=== PATIENT | male | born 2000 | race Two or more races ===

== ENCOUNTER 2021-04-07 21:38 | Emergency (ER) | payer SELFPAY ==
[~2021-04-07] VITALS: Ht 172.7 cm; Wt 101.0 kg
--- NOTE | 2021-04-07 22:20 | PHYS DOC ---
General Adult EDM: Chief Complaint: COUGH HPI: HPI: Patient is a 20-year-old male who presents to the emergency department with a clear productive cough and shortness of breath with coughing. He reports that symptoms started today. He states that his boss is sick with similar symptoms but is unsure of if he has Covid. Patient has a low-grade fever in the emergency department at 100.1 degrees. Patient denies nausea, vomiting, loss of taste or smell. Patient has no medical problems. (GISELLE GARNER APRN) Review of Systems: Review of Systems: 14 body systems of the review of systems have been reviewed. See HPI for pertinent positive and negative responses, otherwise all other systems are negative, nonpertinent or noncontributory (GISELLE GARNER APRN) Heart Score: C/O Chest Pain: No Risk Factors: Risk Factors: DM, Current or recent (<one month) smoker, HTN, HLP, family history of CAD, obesity. Risk Scores: Score 0 - 3: 2.5% MACE over next 6 weeks - Discharge Home Score 4 - 6: 20.3% MACE over next 6 weeks - Admit for Clinical Observation Score 7 - 10: 72.7% MACE over next 6 weeks - Early Invasive Strategies (GISELLE GANRER APRN) Physical Exam: PE: Constitutional: Well developed, well nourished, no acute distress, non-toxic appearance. [] HENT: Normocephalic, atraumatic, bilateral external ears normal, oropharynx moist, no oral exudates, nose normal. [] Eyes: PERRL, EOMI, conjunctiva normal, no discharge. [] Neck: Normal range of motion, no tenderness, supple, no stridor. [] Cardiovascular:Heart rate tachycardic rhythm, no murmur [] Lungs & Thorax: Bilateral breath sounds clear to auscultation [] Abdomen: Bowel sounds normal, soft, no tenderness, no masses, no pulsatile masses. [] Skin: Warm, dry, no erythema, no rash. [] Back: Normal range of motion Extremities: No tenderness, no cyanosis, no clubbing, ROM intact, no edema. [] Neurologic: Alert and oriented X 3, normal motor function, normal sensory function, no focal deficits noted. [] Psychologic: Affect normal, judgement normal, mood normal. [] (GISELLE GARNER APRN) Current Patient Data: Labs: Laboratory Tests Test 04/07/21 22:15 Influenza Type A Antigen Negative Influenza Type B Antigen Negative Current Medications Medications (Trade) Dose Ordered Sig/Amarjit Route PRN Reason Start Time Stop Time Status Last Admin Dose Admin Acetaminophen (Tylenol) 1,000 mg 1X ONCE PO 04/07/21 23:00 04/07/21 23:01 04/07/21 22:51 Ibuprofen (Motrin) 600 mg 1X ONCE PO 04/07/21 23:00 04/07/21 23:01 04/07/21 22:51 (GISELLE GARNER APRN) EKG: EKG: [] (GISELLE GARNER APRN) Radiology/Procedures: Radiology/Procedures: []PROCEDURE: PORTABLE CHEST 1V Exam: Chest one view INDICATION: Cough TECHNIQUE: Frontal view of the chest Comparisons: None FINDINGS: The cardiomediastinal silhouette and pulmonary vessels are within normal limits. The lung and pleural spaces are clear. IMPRESSION: No acute cardiopulmonary process. Electronically signed by: Dontrell Reid MD (04/07/2021 10:29 PM) [facility] DICTATED and SIGNED BY: DONTRELL REID MD DATE: 04/07/21 [id number] (GISELLE GARNER APRN) Course & Med Decision Making: Course & Med Decision Making Pertinent Labs and Imaging studies reviewed. (See chart for details) Patient presents to the emergency department with a clear productive cough and shortness of breath with excessive coughing. Patient was mildly tachycardic in the emergency department. Patient is also noted to have a temperature of 100.1, this was treated with Tylenol and ibuprofen. Following treatment, tachycardia improved and his heart rate is 94 bpm. Patient was tested for influenza and COVID-19. Chest x-ray was performed to rule out pneumonia due to the coughing and the shortness of breath. Patient is not hypoxic. Influenza test was negative. Patient be notified of his Covid results they become available in approximately 1 to 2 days. Patient vies to self isolate until he receives these results. Chest x-ray did not show any acute findings. Patient will be discharged home with cough medication. Advised to take Tylenol and/ibuprofen for his pain or fevers. I discussed with patient all findings and diagnostic testing as well as the need to follow-up with PCP for further evaluation and treatment or return to the ER if any new or worsening symptoms. Strict return precautions were also discussed at length. Patient voiced understanding and agreement with the plan. Patient is hemodynamically stable at the time of disposition. (GISELLE GARNER APRN) Course & Med Decision Making Patients Care and treatment plan provided by ER Nurse Practitioner. I was available for consult. Patient's chart reviewed. (LUC CROWELL DO) Dragon Disclaimer: Maco Disclaimer: This electronic medical record was generated, in whole or in part, using a voice recognition dictation system. (GISELLE GARNER APRN) Departure Departure Impression: Primary Impression: Person under investigation for COVID-19 Disposition: HOME / SELF CARE / HOMELESS Condition: GOOD Patient Instructions: Cough, Adult Additional Instructions: You were seen in the emergency department for shortness of breath and a cough. Your rapid influenza testing was negative. We tested you for COVID-19 you will be notified of those results when they become available in approximately 1 to 2 days, please self isolate until you receive these results. Chest x-ray was performed that showed no acute findings. For any pain or fevers please take Tylenol and/or ibuprofen. Increase your fluids and rest. You are being discharged home with a medication for your cough you can take as needed. Follow-up with your primary care provider tomorrow regarding your ER visit. Re turn to the emergency department if you develop worsening of your shortness of breath, chest pain, high fevers refractory to treatment, intractable nausea or vomiting. Scripts Benzonatate (BENZONATATE) 200 Mg Capsule 1 CAP PO PRN TID PRN for cough for 7 Days, #21 CAP 0 Refills Prov: GISELLE GARNER APRN 04/07/21 GISELLE GARNER APRN Apr 07, 2021 22:20 LUC CROWELL DO Apr 08, 2021 06:08
--- NOTE | 2021-04-07 22:31 | RAD ---
Exam: Chest one view INDICATION: Cough TECHNIQUE: Frontal view of the chest Comparisons: None FINDINGS: The cardiomediastinal silhouette and pulmonary vessels are within normal limits. The lung and pleural spaces are clear. IMPRESSION: No acute cardiopulmonary process. Electronically signed by: Dontrell Rodriguez MD (04/07/2021 10:29 PM) [facility]
[2021-04-07 22:45] LABS: INFLUENZA A PATIENT NEGATIVE (NEGATIVE); INFLUENZA B PATIENT NEGATIVE (NEGATIVE)
[2021-04-07] MEDS ORDERED: BENZ200C47 PO (22:56)
[2021-04-07 23:00] VITALS: BP 146/66
[2021-04-07] MEDS ORDERED: IBUPROFEN 200 MG TABLET. PO ONE (23:00)
[2021-04-07] MEDS ORDERED: ACETAMINOPHEN 500 MG TABLET PO ONE (23:00)
--- NOTE | 2021-04-08 17:00 | NUR ---
IP: Attempted to contact pt concerning covid results. No answer.
--- NOTE | 2021-04-09 14:50 | NUR ---
IP: Attempted to conctact pt a second time concerning covid results. No answer, left a voicemail to return the call.
== END 2021-04-07 23:00 | disposition home or self-care (01) ==
LOC: ER 21:38
DX: R05.9 Cough, unspecified (principal); R06.02 Shortness of breath; Z20.822 Contact with and (suspected) exposure to COVID-19
CPT/HCPCS: 71045; 87804; 99284; U0003; U0005